=== PATIENT | female | born 1945 | race African-American/Black ===

== ENCOUNTER 2017-12-10 12:09 | Inpatient (IN) | payer MEDICAID, MEDICARE ==
--- NOTE | 2017-12-10 12:46 | EDM.PDOC ---
ED HPI GENERAL MEDICAL PROBLEM - General Stated Complaint: WEAKNESS Time Seen by Provider: 12/10/17 12:15 Source of Information: Reports: Patient History Limitations: Reports: No Limitations - History of Present Illness INITIAL COMMENTS - FREE TEXT/NARRATIVE: Patient comes into the emergency department with family with complaints of weakness bilateral lower extremity. Pt does not speak Romanian-granddaughter is here interpreting. Did try to obtain interpretative services over the phone and via E-emergency however unsuccessful for the patients [place] language and they do not have any registered providers. The grandmother states the patient was ambulating on her own yesterday however today she's been unable to ambulate. When patient tries to stand she begins to shake excessively on her lower extremities and cannot move forward. The grand daughter has noticed she has not b been drinking as much over the past couple days but the pt has not mentioned any reason why. Family/patient denies her falling or being injured in any way. She denies any fever, dizziness, lightheadedness, blurred vision, chest pain, or shortness of breath. She also denies any recent travel or numbness and tingling. Onset: Sudden, Gradual Improves with: Reports: None Worsens with: Reports: None - Related Data Allergies Allergy/AdvReac Type Severity Reaction Status Date / Time lisinopril Allergy Cannot Verified 12/10/17 13:01 Remember Home Meds: Home Meds ARIPiprazole [Abilify] 5 mg PO DAILY 12/10/17 [History] Aspirin [Halfprin] 81 mg PO DAILY 12/10/17 [History] Carvedilol 6.25 mg PO BID 12/10/17 [History] Cholecalciferol (Vitamin D3) [Vitamin D3] 1 tab PO DAILY 12/10/17 [History] Citalopram [Citalopram HBr] 1 tab PO DAILY 12/10/17 [History] Furosemide 20 mg PO DAILY 12/10/17 [History] Losartan Potassium 50 mg PO DAILY 12/10/17 [History] Multivitamin [Multivitamins] 1 caplet PO DAILY 12/10/17 [History] Nintedanib Esylate [Ofev] 150 mg PO BID 12/10/17 [History] Olopatadine HCl [Pazeo] 1 drop EYEBOTH DAILY 12/10/17 [History] Potassium Chloride 1 tab PO DAILY 12/10/17 [History] ED ROS GENERAL - Review of Systems Review Of Systems: See Below Constitutional: Reports: Weakness. Denies: Fever, Chills, Malaise, Fatigue, Night Sweats, Diaphoresis, Decreased Appetite, Weight Loss, Weight Gain HEENT: Reports: No Symptoms Respiratory: Reports: No Symptoms Cardiovascular: Reports: No Symptoms Endocrine: Reports: No Symptoms GI/Abdominal: Reports: No Symptoms : Reports: No Symptoms Musculoskeletal: Reports: No Symptoms Skin: Reports: No Symptoms Neurological: Reports: No Symptoms Psychiatric: Reports: No Symptoms Hematologic/Lymphatic: Reports: No Symptoms Immunologic: Reports: No Symptoms ED EXAM, GENERAL - Physical Exam Exam: See Below Exam Limited By: Language Barrier General Appearance: Alert, No Apparent Distress Eye Exam: Bilateral Eye: PERRL Head: Atraumatic, Normocephalic Neck: Normal Inspection, Supple, Non-Tender, Full Range of Motion Respiratory/Chest: No Respiratory Distress, Lungs Clear, Normal Breath Sounds, No Accessory Muscle Use, Chest Non-Tender Cardiovascular: Normal Peripheral Pulses, Regular Rate, Rhythm, No Edema Back Exam: Normal Inspection, Full Range of Motion Extremities: Normal Inspection, Normal Range of Motion, Non-Tender, No Pedal Edema. No: Increased Warmth, Mottled, Pallor, Redness Neurological: Alert, Abnormal Gait, Other (Pt unable to understand sensory motor exam). No: Normal Gait Psychiatric: Flat Affect (pt shows no sign of emotion or facial flucuation when talking with granddaughter) Skin Exam: Warm, Dry, Normal Color EKG INTERPRETATION EKG Date: 12/10/17 Rhythm: NSR (with PVC) ST-T: Normal QT: Normal Comparison: NA - No Prior EKG Course - Vital Signs Last Recorded V/S: Last Vital Signs Temp 37.0 C 12/10/17 12:15 Pulse 87 12/10/17 12:15 Resp 16 12/10/17 12:15 BP 145/97 H 12/10/17 12:15 Pulse Ox 95 12/10/17 12:15 - Orders/Labs/Meds Orders: Active Orders 24 hr Category Date Time Status Admission Status [Patient Status] [ADT] Routine ADT 12/10/17 14:24 Active EKG Documentation Completion [RC] STAT Care 12/10/17 12:27 Active Chest 1V Frontal [CR] Stat Exams 12/10/17 13:45 Taken Knee 1V or 2V Bi [CR] Stat Exams 12/10/17 12:37 Taken Pelvis 1V or 2V [CR] Stat Exams 12/10/17 12:37 Taken UA W/MICROSCOPIC [URIN] Stat Lab 12/10/17 13:04 Ordered Sodium Chloride 0.9% [Saline Flush] Med 12/10/17 13:10 Active 10 ml FLUSH ASDIRECTED PRN Peripheral IV Insertion Adult [OM.PC] Stat Oth 12/10/17 13:09 Ordered Medication Orders Sodium Chloride (Saline Flush) 10 ml FLUSH ASDIRECTED PRN PRN Reason: Keep Vein Open Labs: Laboratory Tests 12/10/17 12/10/17 12/10/17 Range/Units 12:42 12:42 12:42 WBC 7.5 (4.0-10.0) x10^3/uL RBC 5.84 H (4.00-5.50) x10^6/uL Hgb 12.7 (12.0-16.0) g/dL Hct 36.6 (33.0-47.0) % MCV 62.7 L (78.0-93.0) fL MCH 21.7 L (26.0-32.0) pg MCHC 34.7 (32.0-36.0) g/dL RDW Coeff of Jonh 19.6 H (10.0-15.0) % Plt Count 228 (130-400) x10^3/uL Neut % (Auto) 63.7 (50.0-80.0) % Lymph % (Auto) 25.9 (25.0-50.0) % [place] % (Auto) 8.6 (2.0-11.0) % Eos % (Auto) 1.7 (0.0-4.0) % Baso % (Auto) 0.1 L (0.2-1.2) % Sodium 140 (136-145) mmol/L Potassium 3.7 (3.5-5.1) mmol/L Chloride 104 (98-107) mmol/L Carbon Dioxide 26 (21-32) mmol/L Anion Gap 13.7 (10-20) mmol/L BUN 27 H (7-18) mg/dL Creatinine 1.0 (0.55-1.02) mg/dL Est Cr Clr Drug Dosing 35.45 mL/min Estimated GFR (MDRD) 54 Glucose 111 H (74-106) mg/dL Calcium 9.7 (8.5-10.1) mg/dL Corrected Calcium 10.18 H (8.5-10.1) mg/dL Total Bilirubin 0.7 (0.2-1.0) mg/dL AST 22 (15-37) U/L ALT 16 (14-59) U/L Alkaline Phosphatase 73 (46-116) U/L Creatine Kinase 167 (26-192) U/L NT-Pro-B Natriuret Pep 2905 H (<=125) pg/mL Total Protein 9.0 H (6.4-8.2) g/dL Albumin 3.4 (3.4-5.0) g/dL Globulin 5.6 Albumin/Globulin Ratio 0.61 Urine Color (YELLOW) Urine Appearance (CLEAR) Urine pH (5.0-8.0) Ur Specific [place] Urine Protein (NEGATIVE) mg/dL Urine Glucose (UA) (NEGATIVE) mg/dL Urine Ketones (NEGATIVE) mg/dL Urine Occult Blood (NEGATIVE) Urine Nitrite (NEGATIVE) Urine Bilirubin (NEGATIVE) Urine Urobilinogen (0.2) EU/dL Ur Leukocyte Esterase (NEGATIVE) Urine RBC (NOT SEEN) /HPF Urine WBC (NOT SEEN) /HPF Ur Squamous Epith Cells (NEGATIVE) /HPF Urine Bacteria (NEGATIVE) /HPF Urine Mucus (NEGATIVE) /LPF 12/10/17 Range/Units 13:04 WBC (4.0-10.0) x10^3/uL RBC (4.00-5.50) x10^6/uL Hgb (12.0-16.0) g/dL Hct (33.0-47.0) % MCV (78.0-93.0) fL MCH (26.0-32.0) pg MCHC (32.0-36.0) g/dL RDW Coeff of Jonh (10.0-15.0) % Plt Count (130-400) x10^3/uL Neut % (Auto) (50.0-80.0) % Lymph % (Auto) (25.0-50.0) % [place] % (Auto) (2.0-11.0) % Eos % (Auto) (0.0-4.0) % Baso % (Auto) (0.2-1.2) % Sodium (136-145) mmol/L Potassium (3.5-5.1) mmol/L Chloride (98-107) mmol/L Carbon Dioxide (21-32) mmol/L Anion Gap (10-20) mmol/L BUN (7-18) mg/dL Creatinine (0.55-1.02) mg/dL Est Cr Clr Drug Dosing mL/min Estimated GFR (MDRD) Glucose (74-106) mg/dL Calcium (8.5-10.1) mg/dL Corrected Calcium (8.5-10.1) mg/dL Total Bilirubin (0.2-1.0) mg/dL AST (15-37) U/L ALT (14-59) U/L Alkaline Phosphatase (46-116) U/L Creatine Kinase (26-192) U/L NT-Pro-B Natriuret Pep (<=125) pg/mL Total Protein (6.4-8.2) g/dL Albumin (3.4-5.0) g/dL Globulin Albumin/Globulin Ratio Urine Color Yellow (YELLOW) Urine Appearance Clear (CLEAR) Urine pH 7.0 (5.0-8.0) Ur Specific [place] 1.020 Urine Protein >=300 H (NEGATIVE) mg/dL Urine Glucose (UA) Negative (NEGATIVE) mg/dL Urine Ketones Negative (NEGATIVE) mg/dL Urine Occult Blood Trace-intact H (NEGATIVE) Urine Nitrite Negative (NEGATIVE) Urine Bilirubin Negative (NEGATIVE) Urine Urobilinogen 0.2 (0.2) EU/dL Ur Leukocyte Esterase Trace H (NEGATIVE) Urine RBC 0-5 (NOT SEEN) /HPF Urine WBC 0-5 (NOT SEEN) /HPF Ur Squamous Epith Cells Few H (NEGATIVE) /HPF Urine Bacteria Not seen (NEGATIVE) /HPF Urine Mucus Not seen (NEGATIVE) /LPF Meds: Medications Generic Name Dose Route Start Last Admin Trade Name Freq PRN Reason Stop Dose Admin Sodium Chloride 10 ml 12/10/17 13:10 Saline Flush FLUSH ASDIRECTED PRN Keep Vein Open Discontinued Medications Generic Name Dose Route Start Last Admin Trade Name Freq PRN Reason Stop Dose Admin Sodium Chloride 1,000 mls @ 1,000 mls/hr 12/10/17 13:10 08/18/18 13:19 Normal Saline IV 12/10/17 14:09 1,000 mls/hr ONETIME ONE Administration Departure - Departure Time of Disposition: 14:20 Disposition: Admitted As Inpatient 64 Clinical Impression: CHF (congestive heart failure) Qualifiers: Heart failure type: unspecified Heart failure chronicity: acute Qualified Code( s): I50.9 - Heart failure, unspecified - Discharge Information Referrals: PCP,Not In Area [Primary Care Provider] - - My Orders Last 24 Hours: My Active Orders 12/10/17 12:27 EKG Documentation Completion [RC] STAT 12/10/17 12:37 Knee 1V or 2V Bi [CR] Stat Pelvis 1V or 2V [CR] Stat 12/10/17 13:04 UA W/MICROSCOPIC [URIN] Stat 12/10/17 13:09 Peripheral IV Insertion Adult [OM.PC] Stat 12/10/17 13:10 Sodium Chloride 0.9% [Saline Flush] 10 ml FLUSH ASDIRECTED PRN 12/10/17 13:45 Chest 1V Frontal [CR] Stat 12/10/17 14:24 Admission Status [Patient Status] [ADT] Routine - Assessment/Plan Last 24 Hours: My Active Orders 12/10/17 12:27 EKG Documentation Completion [RC] STAT 12/10/17 12:37 Knee 1V or 2V Bi [CR] Stat Pelvis 1V or 2V [CR] Stat 12/10/17 13:04 UA W/MICROSCOPIC [URIN] Stat 12/10/17 13:09 Peripheral IV Insertion Adult [OM.PC] Stat 12/10/17 13:10 Sodium Chloride 0.9% [Saline Flush] 10 ml FLUSH ASDIRECTED PRN 12/10/17 13:45 Chest 1V Frontal [CR] Stat 12/10/17 14:24 Admission Status [Patient Status] [ADT] Routine Assessment:: 1. weakness 2. unable to ambulate on own Plan: 1. labs completed in ER results discussed with the pt and family 2. xray completed in ER results discussed with the pt and family 3. UA completed in ER 4. IV with fluids for possible dehydration. After labs were returned rate was turned down to 125ml/hr 5. Chest x-ray results discussed with the pt and family 6. Discussed case with hospitalist Dr. Quiroz who has agreed to admit pt under acute care.
[2017-12-10] MEDS ORDERED: Sodium Chloride 0.9% 1,000 ML IV ONE (13:10)
[2017-12-10 13:14] LABS: ANION GAP 13.7 mmol/L (10-20)
[2017-12-10] MEDS ORDERED: Sodium Chloride 0.9% 10 ML Syringe FLUSH PRN (14:51)
[2017-12-10] MEDS: Furosemide 20 MG/2 ML VIAL IV SCH ×2 (17:09→20:11)
[2017-12-10] MEDS: Sodium Chloride 0.9% 10 ML Syringe FLUSH PRN ×2 (17:16→20:11)
[2017-12-10] MEDS: Carvedilol 6.25 MG Tab PO SCH (20:11)
--- NOTE | 2017-12-10 20:30 | PCM.HP ---
H&P History of Present Illness - General Date of Service: 12/10/17 Admit Problem/Dx: Admission Diagnosis/Problem Admission Diagnosis/Problem CHF, Congestive heart failure Source of Information: Patient, Old Records History Limitations: Reports: Language Barrier - History of Present Illness Initial Comments - Free Text/Narative: CC Weakness Pt is 73 year old [place]ian female who has been visiting her granddaughter in for a week. Pt's U[place]ayan is severely limited and hx is obtained through Granddaughter's translation. The patient has been living in [place] with her daughter. She is at baseline able to walk w/o a walker, do ADL's, cook and clean. Granddaughter knows of a hx of depression and some lung problems. Pt was in her usual state of health until she was found this afternoon on her hands and knees, unable to get up because of weakness. Pt herself says the weakness started the night before admision. She denies any pain in legs, back or head, numbness or tingling, just that she is weak. She denies any chess pain or SOB Pt was found unable to transfer w/o 2 assisting in the ER while her strength in her legs was more or less intact. CXR and BNP were consistent with CHF and pt is being admitted for diuresis and observation and treatment of her weakness. Other HPI/Comments: problem2: weakness - Related Data Allergies/Adverse Reactions: Allergies Allergy/AdvReac Type Severity Reaction Status Date / Time lisinopril Allergy Cannot Verified 12/10/17 13:01 Remember Home Medications: Home Meds ARIPiprazole [Abilify] 5 mg PO DAILY 12/10/17 [History] Aspirin [Halfprin] 81 mg PO DAILY 12/10/17 [History] Carvedilol 6.25 mg PO BID 12/10/17 [History] Cholecalciferol (Vitamin D3) [Vitamin D3] 1 tab PO DAILY 12/10/17 [History] Citalopram [Citalopram HBr] 1 tab PO DAILY 12/10/17 [History] Furosemide 20 mg PO DAILY 12/10/17 [History] Losartan Potassium 50 mg PO DAILY 12/10/17 [History] Multivitamin [Multivitamins] 1 caplet PO DAILY 12/10/17 [History] Nintedanib Esylate [Ofev] 150 mg PO BID 12/10/17 [History] Olopatadine HCl [Pazeo] 1 drop EYEBOTH DAILY 12/10/17 [History] Potassium Chloride 1 tab PO DAILY 12/10/17 [History] Past Medical History Cardiovascular History: Reports: Heart Failure (EF 45% with lateral wall hypokinesis, mod MR 06/2017), Hypertension Respiratory History: Reports: Other (See Below) (treated for pulomnary fibrosis at [facility]) Musculoskeletal History: Reports: RA Psychiatric History: Reports: Depression (unable to get hx as to why she is on abilify) Social & Family History - Family History Family Medical History: Unobtainable - Tobacco Use Smoking Status *Q: Never Smoker - Living Situation & Occupation Living situation: Reports: with Family Occupation: Unemployed H&P Review of Systems - Review of Systems: Review Of Systems: See Below General: Reports: No Symptoms Pulmonary: Reports: No Symptoms Cardiovascular: Reports: No Symptoms Gastrointestinal: Reports: No Symptoms Genitourinary: Reports: No Symptoms Musculoskeletal: Reports: No Symptoms Psychiatric: Reports: No Symptoms Neurological: Reports: Gait Disturbance Exam - Exam Exam: See Below - Vital Signs Vital Signs: Last Vital Signs Temp 98.5 F 12/10/17 17:39 Pulse 80 12/10/17 20:11 Resp 20 12/10/17 17:39 BP 151/85 H 12/10/17 20:11 Pulse Ox 99 12/10/17 17:39 Weight: 124 lb 13 oz - Exam General: Alert, Cooperative (limited cooperatio because of language difficulty) HEENT: Conjunctiva Clear, Mucosa Moist & [place] Neck: Supple Lungs: Clear to Auscultation Cardiovascular: Regular Rate GI/Abdominal Exam: Normal Bowel Sounds, Soft, Non-Tender Back Exam: Normal Inspection (no back tenderness) Extremities: Normal Inspection, No Pedal Edema Skin: Warm, Dry, Intact Neurological: Cranial Nerves Intact, Sensation Intact (intact to fine touch, after repated coaching, hip, knee and ankle stength appers liberty in tact but pt unable to stand on her own and walk even 2 steps ) - Patient Data Lab Results Last 24 hrs: Laboratory Results - last 24 hr 12/10/17 12/10/17 12/10/17 Range/Units 12:42 12:42 12:42 WBC 7.5 (4.0-10.0) x10^3/uL RBC 5.84 H (4.00-5.50) x10^6/uL Hgb 12.7 (12.0-16.0) g/dL Hct 36.6 (33.0-47.0) % MCV 62.7 L (78.0-93.0) fL MCH 21.7 L (26.0-32.0) pg MCHC 34.7 (32.0-36.0) g/dL RDW Coeff of Jonh 19.6 H (10.0-15.0) % Plt Count 228 (130-400) x10^3/uL Neut % (Auto) 63.7 (50.0-80.0) % Lymph % (Auto) 25.9 (25.0-50.0) % [place] % (Auto) 8.6 (2.0-11.0) % Eos % (Auto) 1.7 (0.0-4.0) % Baso % (Auto) 0.1 L (0.2-1.2) % Sodium 140 (136-145) mmol/L Potassium 3.7 (3.5-5.1) mmol/L Chloride 104 (98-107) mmol/L Carbon Dioxide 26 (21-32) mmol/L Anion Gap 13.7 (10-20) mmol/L BUN 27 H (7-18) mg/dL Creatinine 1.0 (0.55-1.02) mg/dL Est Cr Clr Drug Dosing 35.45 mL/min Estimated GFR (MDRD) 54 Glucose 111 H (74-106) mg/dL Calcium 9.7 (8.5-10.1) mg/dL Corrected Calcium 10.18 H (8.5-10.1) mg/dL Total Bilirubin 0.7 (0.2-1.0) mg/dL AST 22 (15-37) U/L ALT 16 (14-59) U/L Alkaline Phosphatase 73 (46-116) U/L Creatine Kinase 167 (26-192) U/L Troponin I (<=0.056) ng/mL NT-Pro-B Natriuret Pep 2905 H (<=125) pg/mL Total Protein 9.0 H (6.4-8.2) g/dL Albumin 3.4 (3.4-5.0) g/dL Globulin 5.6 Albumin/Globulin Ratio 0.61 Urine Color (YELLOW) Urine Appearance (CLEAR) Urine pH (5.0-8.0) Ur Specific [place] Urine Protein (NEGATIVE) mg/dL Urine Glucose (UA) (NEGATIVE) mg/dL Urine Ketones (NEGATIVE) mg/dL Urine Occult Blood (NEGATIVE) Urine Nitrite (NEGATIVE) Urine Bilirubin (NEGATIVE) Urine Urobilinogen (0.2) EU/dL Ur Leukocyte Esterase (NEGATIVE) Urine RBC (NOT SEEN) /HPF Urine WBC (NOT SEEN) /HPF Ur Squamous Epith Cells (NEGATIVE) /HPF Urine Bacteria (NEGATIVE) /HPF Urine Mucus (NEGATIVE) /LPF 12/10/17 12/10/17 Range/Units 12:42 13:04 WBC (4.0-10.0) x10^3/uL RBC (4.00-5.50) x10^6/uL Hgb (12.0-16.0) g/dL Hct (33.0-47.0) % MCV (78.0-93.0) fL MCH (26.0-32.0) pg MCHC (32.0-36.0) g/dL RDW Coeff of Jonh (10.0-15.0) % Plt Count (130-400) x10^3/uL Neut % (Auto) (50.0-80.0) % Lymph % (Auto) (25.0-50.0) % [place] % (Auto) (2.0-11.0) % Eos % (Auto) (0.0-4.0) % Baso % (Auto) (0.2-1.2) % Sodium (136-145) mmol/L Potassium (3.5-5.1) mmol/L Chloride (98-107) mmol/L Carbon Dioxide (21-32) mmol/L Anion Gap (10-20) mmol/L BUN (7-18) mg/dL Creatinine (0.55-1.02) mg/dL Est Cr Clr Drug Dosing mL/min Estimated GFR (MDRD) Glucose (74-106) mg/dL Calcium (8.5-10.1) mg/dL Corrected Calcium (8.5-10.1) mg/dL Total Bilirubin (0.2-1.0) mg/dL AST (15-37) U/L ALT (14-59) U/L Alkaline Phosphatase (46-116) U/L Creatine Kinase (26-192) U/L Troponin I < 0.017 (<=0.056) ng/mL NT-Pro-B Natriuret Pep (<=125) pg/mL Total Protein (6.4-8.2) g/dL Albumin (3.4-5.0) g/dL Globulin Albumin/Globulin Ratio Urine Color Yellow (YELLOW) Urine Appearance Clear (CLEAR) Urine pH 7.0 (5.0-8.0) Ur Specific [place] 1.020 Urine Protein >=300 H (NEGATIVE) mg/dL Urine Glucose (UA) Negative (NEGATIVE) mg/dL Urine Ketones Negative (NEGATIVE) mg/dL Urine Occult Blood Trace-intact H (NEGATIVE) Urine Nitrite Negative (NEGATIVE) Urine Bilirubin Negative (NEGATIVE) Urine Urobilinogen 0.2 (0.2) EU/dL Ur Leukocyte Esterase Trace H (NEGATIVE) Urine RBC 0-5 (NOT SEEN) /HPF Urine WBC 0-5 (NOT SEEN) /HPF Ur Squamous Epith Cells Few H (NEGATIVE) /HPF Urine Bacteria Not seen (NEGATIVE) /HPF Urine Mucus Not seen (NEGATIVE) /LPF Result Diagrams: 12/10/17 12:42 12/10/17 12:42 EKG INTERPRETATION Rhythm: NSR [place]: LAD-Left [place] Deviation QRS: RBBB - Problem List (1) CHF (congestive heart failure) SNOMED Code(s): 32856908 ICD Code: I50.9 - HEART FAILURE, UNSPECIFIED Status: Acute Current Visit : Yes Qualifiers: Heart failure type: unspecified Heart failure chronicity: acute on chronic Qualified Code(s): I50.9 - Heart failure, unspecified Problem List Initiated/Reviewed/Updated: Yes Orders Last 24hrs: Active Orders 24 hr Category Date Time Status Patient Status [ADT] Routine ADT 12/10/17 14:51 Active Cardiac Monitoring [RC] 02,06,10,14,18,22 Care 12/10/17 14:52 Active Communication Order [RC] ROUTINE Care 12/10/17 15:05 Active EKG Documentation Completion [RC] STAT Care 12/10/17 12:27 Active Height and Weight [RC] 07 Care 12/10/17 14:51 Active Intake and Output [RC] ,18 Care 12/10/17 14:52 Active Oxygen Therapy [RC] .PRN Care 12/10/17 14:51 Active Up With Assistance [RC] 08,20 Care 12/10/17 14:51 Active VTE/DVT Education [RC] .PRN Care 12/10/17 14:51 Active Vital Signs [RC] 02,06,10,14,18,22 Care 12/10/17 14:51 Active 2 Gram Sodium Diet [DIET] Diet 12/10/17 Dinner Active Chest 1V Frontal [CR] Stat Exams 12/10/17 13:45 Taken Head wo Cont [CT] Routine Exams 12/10/17 15:02 Taken Knee 1V or 2V Bi [CR] Stat Exams 12/10/17 12:37 Taken Pelvis 1V or 2V [CR] Stat Exams 12/10/17 12:37 Taken BASIC METABOLIC PANEL,BMP [CHEM] AM Lab 12/11/17 05:11 Ordered COMPREHENSIVE METABOLIC PN,CMP [CHEM] Routine Lab 12/11/17 05:11 Ordered MAGNESIUM [CHEM] AM Lab 12/11/17 05:11 Ordered TROPONIN I [CHEM] AM Lab 12/11/17 05:11 Ordered UA W/MICROSCOPIC [URIN] Stat Lab 12/10/17 13:04 Ordered ARIPiprazole [Abilify] Med 12/11/17 08:00 Pending 5 mg PO DAILY Aspirin [Halfprin] Med 12/11/17 08:00 Active 81 mg PO DAILY Carvedilol [Coreg] Med 12/10/17 20:00 Active 6.25 mg PO BID Cholecalciferol (Vitamin D3) [Vitamin D3] Med 12/11/17 08:00 Active 1,000 units PO DAILY Citalopram [Celexa] Med 12/11/17 08:00 Active 20 mg PO DAILY Enoxaparin [Lovenox] Med 12/11/17 08:00 Active 40 mg SUBCUT DAILY Furosemide [Lasix] Med 12/10/17 16:30 Active 20 mg IV TID Losartan [Cozaar] Med 12/11/17 08:00 Active 50 mg PO DAILY Multivitamins with Zinc [Stress Formula with Zinc] Med 12/11/17 08:00 Active 1 tab PO DAILY Nintedanib Esylate [Ofev] Med 12/10/17 20:00 Active 150 mg PO BID Olopatadine HCl [Pazeo] Med 12/11/17 08:00 Pending 1 drop EYEBOTH DAILY Potassium Chloride [Klor-Con 10] Med 12/11/17 08:00 Active 10 meq PO DAILY Sodium Chloride 0.9% [Saline Flush] Med 12/10/17 13:10 Active 10 ml FLUSH ASDIRECTED PRN Sodium Chloride 0.9% [Saline Flush] Med 12/10/17 14:51 Active 10 ml FLUSH ASDIRECTED PRN Peripheral IV Insertion Adult [OM.PC] Stat Oth 12/10/17 13:09 Ordered Saline Lock Insert [OM.PC] Routine Oth 12/10/17 14:51 Ordered Resuscitation Status Routine Resus Stat 12/10/17 14:51 Ordered Medication Orders Aspirin (Halfprin) 81 mg PO DAILY [facility] Carvedilol (Coreg) 6.25 mg PO BID [facility] Last Admin: 12/10/17 20:11 Dose: 6.25 mg Cholecalciferol (Vitamin D3) 1,000 units PO DAILY [facility] Citalopram Hydrobromide (Celexa) 20 mg PO DAILY [facility] Enoxaparin Sodium (Lovenox) 40 mg SUBCUT DAILY [facility] Furosemide (Lasix) 20 mg IV TID [facility] Last Admin: 12/10/17 20:11 Dose: 20 mg Admin: 12/10/17 17:09 Dose: 20 mg Losartan Potassium (Cozaar) 50 mg PO DAILY [facility] Non-Formulary Medication (Aripiprazole [Abilify]) 5 mg PO DAILY [facility] Pt Own Med ( Nintedanib Esylate [ Ofev] 150 Mg) 150 mg PO BID [facility] Non-Formulary Medication (Olopatadine Hcl [Pazeo]) 1 drop EYEBOTH DAILY [facility] Potassium Chloride (Klor-Con 10) 10 meq PO DAILY [facility] Sodium Chloride (Saline Flush) 10 ml FLUSH ASDIRECTED PRN PRN Reason: Keep Vein Open Last Admin: 12/10/17 20:11 Dose: 10 ml Admin: 12/10/17 17:16 Dose: 10 ml Sodium Chloride (Saline Flush) 10 ml FLUSH ASDIRECTED PRN PRN Reason: Keep Vein Open Vitamin B Complex/Vit C/Vit E/Zinc (Stress Formula With Zinc) 1 tab PO DAILY [facility] Assessment/Plan Comment:: BNP has never been as high as present level. Will diures with Iv Lasix amd repeat BNP. problem 2: weakness- etiology of this is unclear, maybe related to CHF Plain x rays of hip, knees and pelvis neg for acute injury Cat head shows 12 calcification in an area of encephalomalacia left frontal lobe , mild to moderate generalized atrophy and chronic small vessel disease. If she fails to improve MRI mayb e worthwhile. Also of note is mildly elevated calcium and protein, will repeat n AM and if abnormal will need up for hypercalcemia and Multiple myeloma 3. Microcytosis: this has been seen previously, may be a thalassemia trait, Will hold off on workup since hb is normal, get records from [facility] 4. Depression: continue antidepressant, get records re abilify 5. Pulm Fibrosis: continue present medication, cxr not helpful to determine level of CHF.
[2017-12-10] MEDS: NINTEDANIB ESYLATE 150 MG PO SCH (21:16)
[2017-12-11 07:55] LABS: ANION GAP 13.4 mmol/L (10-20)
[2017-12-11] MEDS: Losartan 50 MG Tab PO SCH (08:10)
[2017-12-11] MEDS: Aspirin 81 MG Tab.EC PO SCH (08:10)
[2017-12-11] MEDS: Multivitamin, Stress Formula with Zinc Tab PO SCH (08:10)
[2017-12-11] MEDS: Cholecalciferol (Vitamin D3) 1,000 Unit Tab PO SCH (08:10)
[2017-12-11] MEDS: Furosemide 20 MG/2 ML VIAL IV SCH ×3 (08:11→21:03)
[2017-12-11] MEDS: Potassium Chloride 10 MEQ Tab.ER PO SCH (08:11)
[2017-12-11] MEDS: Enoxaparin 40 MG/0.4 ML Syringe SUBCUT SCH (08:11)
[2017-12-11] MEDS: Citalopram 20 MG Tab PO SCH (08:11)
[2017-12-11] MEDS: Carvedilol 6.25 MG Tab PO SCH ×2 (08:11→21:03)
[2017-12-11] MEDS: NINTEDANIB ESYLATE 150 MG PO SCH ×2 (08:12→21:03)
--- NOTE | 2017-12-11 10:31 | PCM.PN ---
- General Info Date of Service: 12/11/17 Subjective Update: Pt unable to voice any complaint because of language barrier but answers ok to "How are you today" - Patient Data Vitals - Most Recent: Last Vital Signs Temp 97.0 F 12/11/17 09:38 Pulse 75 12/11/17 09:38 Resp 16 12/11/17 09:38 BP 130/93 H 12/11/17 09:38 Pulse Ox 100 12/11/17 09:38 Weight - Most Recent: 123 lb 6.4 oz I&O - Last 24 Hours: Intake & Output 12/10/17 12/11/17 12/11/17 22:59 06:59 14:59 Intake Total 200 600 Output Total 1150 1800 Balance -950 -1200 Lab Results Last 24 Hours: Laboratory Results - last 24 hr 12/10/17 12/10/17 12/10/17 Range/Units 12:42 12:42 12:42 WBC 7.5 (4.0-10.0) x10^3/uL RBC 5.84 H (4.00-5.50) x10^6/uL Hgb 12.7 (12.0-16.0) g/dL Hct 36.6 (33.0-47.0) % MCV 62.7 L (78.0-93.0) fL MCH 21.7 L (26.0-32.0) pg MCHC 34.7 (32.0-36.0) g/dL RDW Coeff of Jonh 19.6 H (10.0-15.0) % Plt Count 228 (130-400) x10^3/uL Neut % (Auto) 63.7 (50.0-80.0) % Lymph % (Auto) 25.9 (25.0-50.0) % [place] % (Auto) 8.6 (2.0-11.0) % Eos % (Auto) 1.7 (0.0-4.0) % Baso % (Auto) 0.1 L (0.2-1.2) % Sodium 140 (136-145) mmol/L Potassium 3.7 (3.5-5.1) mmol/L Chloride 104 (98-107) mmol/L Carbon Dioxide 26 (21-32) mmol/L Anion Gap 13.7 (10-20) mmol/L BUN 27 H (7-18) mg/dL Creatinine 1.0 (0.55-1.02) mg/dL Est Cr Clr Drug Dosing 35.45 mL/min Estimated GFR (MDRD) 54 Glucose 111 H (74-106) mg/dL Calcium 9.7 (8.5-10.1) mg/dL Corrected Calcium 10.18 H (8.5-10.1) mg/dL Magnesium (1.8-2.4) mg/dL Total Bilirubin 0.7 (0.2-1.0) mg/dL AST 22 (15-37) U/L ALT 16 (14-59) U/L Alkaline Phosphatase 73 (46-116) U/L Creatine Kinase 167 (26-192) U/L Troponin I (<=0.056) ng/mL NT-Pro-B Natriuret Pep 2905 H (<=125) pg/mL Total Protein 9.0 H (6.4-8.2) g/dL Albumin 3.4 (3.4-5.0) g/dL Globulin 5.6 Albumin/Globulin Ratio 0.61 Urine Color (YELLOW) Urine Appearance (CLEAR) Urine pH (5.0-8.0) Ur Specific Mackey Urine Protein (NEGATIVE) mg/dL Urine Glucose (UA) (NEGATIVE) mg/dL Urine Ketones (NEGATIVE) mg/dL Urine Occult Blood (NEGATIVE) Urine Nitrite (NEGATIVE) Urine Bilirubin (NEGATIVE) Urine Urobilinogen (0.2) EU/dL Ur Leukocyte Esterase (NEGATIVE) Urine RBC (NOT SEEN) /HPF Urine WBC (NOT SEEN) /HPF Ur Squamous Epith Cells (NEGATIVE) /HPF Urine Bacteria (NEGATIVE) /HPF Urine Mucus (NEGATIVE) /LPF 12/10/17 12/10/17 12/11/17 Range/Units 12:42 13:04 07:13 WBC (4.0-10.0) x10^3/uL RBC (4.00-5.50) x10^6/uL Hgb (12.0-16.0) g/dL Hct (33.0-47.0) % MCV (78.0-93.0) fL MCH (26.0-32.0) pg MCHC (32.0-36.0) g/dL RDW Coeff of Jonh (10.0-15.0) % Plt Count (130-400) x10^3/uL Neut % (Auto) (50.0-80.0) % Lymph % (Auto) (25.0-50.0) % [place] % (Auto) (2.0-11.0) % Eos % (Auto) (0.0-4.0) % Baso % (Auto) (0.2-1.2) % Sodium 142 (136-145) mmol/L Potassium 3.4 L (3.5-5.1) mmol/L Chloride 105 (98-107) mmol/L Carbon Dioxide 27 (21-32) mmol/L Anion Gap 13.4 (10-20) mmol/L BUN 29 H (7-18) mg/dL Creatinine 1.1 H (0.55-1.02) mg/dL Est Cr Clr Drug Dosing 32.23 mL/min Estimated GFR (MDRD) 59 Glucose 140 H (74-106) mg/dL Calcium 8.9 (8.5-10.1) mg/dL Corrected Calcium 9.54 (8.5-10.1) mg/dL Magnesium 1.9 (1.8-2.4) mg/dL Total Bilirubin 0.7 (0.2-1.0) mg/dL AST 35 (15-37) U/L ALT 20 (14-59) U/L Alkaline Phosphatase 68 (46-116) U/L Creatine Kinase (26-192) U/L Troponin I < 0.017 0.028 (<=0.056) ng/mL NT-Pro-B Natriuret Pep (<=125) pg/mL Total Protein 8.5 H (6.4-8.2) g/dL Albumin 3.2 L (3.4-5.0) g/dL Globulin 5.3 Albumin/Globulin Ratio 0.60 Urine Color Yellow (YELLOW) Urine Appearance Clear (CLEAR) Urine pH 7.0 (5.0-8.0) Ur Specific Mackey 1.020 Urine Protein >=300 H (NEGATIVE) mg/dL Urine Glucose (UA) Negative (NEGATIVE) mg/dL Urine Ketones Negative (NEGATIVE) mg/dL Urine Occult Blood Trace-intact H (NEGATIVE) Urine Nitrite Negative (NEGATIVE) Urine Bilirubin Negative (NEGATIVE) Urine Urobilinogen 0.2 (0.2) EU/dL Ur Leukocyte Esterase Trace H (NEGATIVE) Urine RBC 0-5 (NOT SEEN) /HPF Urine WBC 0-5 (NOT SEEN) /HPF Ur Squamous Epith Cells Few H (NEGATIVE) /HPF Urine Bacteria Not seen (NEGATIVE) /HPF Urine Mucus Not seen (NEGATIVE) /LPF 12/11/17 Range/Units 07:13 WBC (4.0-10.0) x10^3/uL RBC (4.00-5.50) x10^6/uL Hgb (12.0-16.0) g/dL Hct (33.0-47.0) % MCV (78.0-93.0) fL MCH (26.0-32.0) pg MCHC (32.0-36.0) g/dL RDW Coeff of Jonh (10.0-15.0) % Plt Count (130-400) x10^3/uL Neut % (Auto) (50.0-80.0) % Lymph % (Auto) (25.0-50.0) % [place] % (Auto) (2.0-11.0) % Eos % (Auto) (0.0-4.0) % Baso % (Auto) (0.2-1.2) % Sodium (136-145) mmol/L Potassium (3.5-5.1) mmol/L Chloride (98-107) mmol/L Carbon Dioxide (21-32) mmol/L Anion Gap (10-20) mmol/L BUN (7-18) mg/dL Creatinine (0.55-1.02) mg/dL Est Cr Clr Drug Dosing mL/min Estimated GFR (MDRD) Glucose (74-106) mg/dL Calcium (8.5-10.1) mg/dL Corrected Calcium (8.5-10.1) mg/dL Magnesium (1.8-2.4) mg/dL Total Bilirubin (0.2-1.0) mg/dL AST (15-37) U/L ALT (14-59) U/L Alkaline Phosphatase (46-116) U/L Creatine Kinase (26-192) U/L Troponin I (<=0.056) ng/mL NT-Pro-B Natriuret Pep 2199 H (<=125) pg/mL Total Protein (6.4-8.2) g/dL Albumin (3.4-5.0) g/dL Globulin Albumin/Globulin Ratio Urine Color (YELLOW) Urine Appearance (CLEAR) Urine pH (5.0-8.0) Ur Specific [place] Urine Protein (NEGATIVE) mg/dL Urine Glucose (UA) (NEGATIVE) mg/dL Urine Ketones (NEGATIVE) mg/dL Urine Occult Blood (NEGATIVE) Urine Nitrite (NEGATIVE) Urine Bilirubin (NEGATIVE) Urine Urobilinogen (0.2) EU/dL Ur Leukocyte Esterase (NEGATIVE) Urine RBC (NOT SEEN) /HPF Urine WBC (NOT SEEN) /HPF Ur Squamous Epith Cells (NEGATIVE) /HPF Urine Bacteria (NEGATIVE) /HPF Urine Mucus (NEGATIVE) /LPF Med Orders - Current: Current Medications Aspirin (Halfprin) 81 mg PO DAILY [facility] Last Admin: 12/11/17 08:10 Dose: 81 mg Carvedilol (Coreg) 6.25 mg PO BID [facility] Last Admin: 12/11/17 08:11 Dose: 6.25 mg Cholecalciferol (Vitamin D3) 1,000 units PO DAILY [facility] Last Admin: 12/11/17 08:10 Dose: 1,000 units Citalopram Hydrobromide (Celexa) 20 mg PO DAILY [facility] Last Admin: 12/11/17 08:11 Dose: 20 mg Enoxaparin Sodium (Lovenox) 40 mg SUBCUT DAILY [facility] Last Admin: 12/11/17 08:11 Dose: 40 mg Furosemide (Lasix) 20 mg IV TID [facility] Last Admin: 12/11/17 08:11 Dose: 20 mg Losartan Potassium (Cozaar) 50 mg PO DAILY [facility] Last Admin: 12/11/17 08:10 Dose: 50 mg Non-Formulary Medication (Aripiprazole [Abilify]) 5 mg PO DAILY [facility] Pt Own Med ( Nintedanib Esylate [ Ofev] 150 Mg) 150 mg PO BID [facility] Last Admin: 12/11/17 08:12 Dose: 150 mg Non-Formulary Medication (Olopatadine Hcl [Pazeo]) 1 drop EYEBOTH DAILY [facility] Potassium Chloride (Klor-Con 10) 10 meq PO DAILY [facility] Last Admin: 12/11/17 08:11 Dose: 10 meq Sodium Chloride (Saline Flush) 10 ml FLUSH ASDIRECTED PRN PRN Reason: Keep Vein Open Last Admin: 12/10/17 20:11 Dose: 10 ml Sodium Chloride (Saline Flush) 10 ml FLUSH ASDIRECTED PRN PRN Reason: Keep Vein Open Vitamin B Complex/Vit C/Vit E/Zinc (Stress Formula With Zinc) 1 tab PO DAILY [facility] Last Admin: 12/11/17 08:10 Dose: 1 tab Discontinued Medications Sodium Chloride (Normal Saline) 1,000 mls @ 1,000 mls/hr IV ONETIME ONE Stop: 12/10/17 14:09 Last Admin: 12/10/17 13:19 Dose: 1,000 mls/hr - Exam General: Alert Lungs: Rales (1/3 renate) Cardiovascular: Regular Rate, Murmurs (2/6 mitral) Extremities: Normal Inspection Neurological: Other (moving legs outof bed , able to sit up on side of bed w/o assistance.) Psy/Mental Status: Alert (able to stand independently but walks easily with walker) - Problem List & Annotations (1) CHF (congestive heart failure) SNOMED Code(s): 47020511 Code(s): I50.9 - HEART FAILURE, UNSPECIFIED Status: Acute Current Visit: Yes Qualifiers: Heart failure type: unspecified Heart failure chronicity: acute on chronic Qualified Code(s): I50.9 - Heart failure, unspecified Annotation/Comment:: bnp improved, weight down 1 lb, continue IV Lasix (2) Weakness SNOMED Code(s): 11657364 Code(s): R53.1 - WEAKNESS Status: Acute Current Visit: Yes Annotation/ Comment:: Pt's appears stronger today but clearly unable to wlak w/o walker. Her [place] chart makes nomention of walker use; will need to navarro with daughter about pt's functioning status, also get [facility] notes.Pt uses walker easily, suggesting she has used one int he past. Will place Pt consult. (3) Hypercalcemia SNOMED Code(s): 28929221 Code(s): E83.52 - HYPERCALCEMIA Status: Acute Current Visit: Yes Annotation/Comment:: resolved (4) RBC microcytosis Status: Acute Current Visit: Yes Annotation/Comment:: was seen in [place] labs over the last year, await [facility] labs - My Orders Last 24 Hours: My Active Orders 12/10/17 14:51 Patient Status [ADT] Routine Height and Weight [RC] 07 Oxygen Therapy [RC] .PRN Up With Assistance [RC] 08,20 VTE/DVT Education [RC] .PRN Vital Signs [RC] 02,06,10,14,18,22 Sodium Chloride 0.9% [Saline Flush] 10 ml FLUSH ASDIRECTED PRN Saline Lock Insert [OM.PC] Routine Resuscitation Status Routine 12/10/17 14:52 Intake and Output [RC] 12/10/17 15:02 Head wo Cont [CT] Routine 12/10/17 15:05 Communication Order [RC] ROUTINE 12/10/17 16:30 Furosemide [Lasix] 20 mg IV TID 12/10/17 20:00 Carvedilol [Coreg] 6.25 mg PO BID Nintedanib Esylate [Ofev] 150 mg PO BID 12/10/17 Dinner 2 Gram Sodium Diet [DIET] 12/11/17 08:00 ARIPiprazole [Abilify] 5 mg PO DAILY Aspirin [Halfprin] 81 mg PO DAILY Cholecalciferol (Vitamin D3) [Vitamin D3] 1,000 units PO DAILY Citalopram [Celexa] 20 mg PO DAILY Enoxaparin [Lovenox] 40 mg SUBCUT DAILY Losartan [Cozaar] 50 mg PO DAILY Multivitamins with Zinc [Stress Formula with Zinc] 1 tab PO DAILY Olopatadine HCl [Pazeo] 1 drop EYEBOTH DAILY Potassium Chloride [Klor-Con 10] 10 meq PO DAILY - Plan Plan:: BNP has never been as high as present level. Will diures with Iv Lasix amd repeat BNP. problem 2: weakness- etiology of this is unclear, maybe related to CHF Plain x rays of hip, knees and pelvis neg for acute injury Cat head shows 12 calcification in an area of encephalomalacia left frontal lobe , mild to moderate generalized atrophy and chronic small vessel disease. If she fails to improve MRI mayb e worthwhile. Also of note is mildly elevated calcium and protein, will repeat n AM and if abnormal will need up for hypercalcemia and Multiple myeloma 3. Microcytosis: this has been seen previously, may be a thalassemia trait, Will hold off on workup since hb is normal, get records from [facility] 4. Depression: continue antidepressant, get records re abilify 5. Pulm Fibrosis: continue present medication, cxr not helpful to determine level of CHF.
[2017-12-11] MEDS: Sodium Chloride 0.9% 10 ML Syringe FLUSH PRN (21:06)
[2017-12-12] MEDS: Citalopram 20 MG Tab PO SCH (07:59)
[2017-12-12] MEDS: Multivitamin, Stress Formula with Zinc Tab PO SCH (07:59)
[2017-12-12] MEDS: Cholecalciferol (Vitamin D3) 1,000 Unit Tab PO SCH (07:59)
[2017-12-12] MEDS: Enoxaparin 40 MG/0.4 ML Syringe SUBCUT SCH (07:59)
[2017-12-12] MEDS: Furosemide 20 MG/2 ML VIAL IV SCH ×2 (07:59→11:48)
[2017-12-12] MEDS: Aspirin 81 MG Tab.EC PO SCH (07:59)
[2017-12-12] MEDS: Potassium Chloride 10 MEQ Tab.ER PO SCH ×3 (07:59→12:28)
[2017-12-12] MEDS: Carvedilol 6.25 MG Tab PO SCH (07:59)
[2017-12-12] MEDS: Losartan 50 MG Tab PO SCH (07:59)
[2017-12-12] MEDS: NINTEDANIB ESYLATE 150 MG PO SCH (08:00)
[2017-12-12] MEDS: Sodium Chloride 0.9% 10 ML Syringe FLUSH PRN (08:00)
[2017-12-12 09:03] LABS: ANION GAP 13.2 mmol/L (10-20)
[2017-12-12] MEDS: ARIPIPRAZOLE 5 MG PO SCH ×2 (09:27→11:24)
[2017-12-12] MEDS: OLOPATADINE HCL EYE EYEBOTH SCH ×2 (09:30→09:38)
[2017-12-12] MEDS ORDERED: Potassium Chloride 10 MEQ Tab.ER PO SCH (12:11)
--- NOTE | 2017-12-13 05:44 | DISCH ---
PRIMARY DISCHARGE DIAGNOSES: 1. [id number] systolic heart failure exacerbation with known ejection fraction of 40% from 06/2017. Undergoing further outpatient cardiology workup, but has not had her stress test yet. 2. Moderate mitral regurgitation. 3. Underlying pulmonary fibrosis, on treatment since September. 4. Positive rheumatoid factor, but no diagnosis of rheumatoid arthritis. 5. Bilateral knee pain due to osteoarthritis, notedly significant on x-ray, especially the left knee, but right knee seems to be worse. 6. Bilateral leg weakness, probably due to heart failure exacerbation. 7. Essential hypertension, on Cozaar. 8. History of depression, on Abilify and Celexa. She normally follows with the [facility]. 9. Reported findings on CT scan for encephalomalacia of the left frontal lobe with no history of clinical stroke. Discussed with family. 10.Microcytosis, chronic, without anemia, possibly underlying thalassemia. 11.Hypokalemia due to diuresis, improving. Our plan is to increase potassium on discharge. 12.Mild hypercalcemia on admission, corrected. REASON FOR ADMISSION: On the date of admission, this 72-year-old female was found to be down at home, not necessarily fallen and lying there, but just unable to get back up. She has arthritis in her knees. She was brought in. She was found to have some rales. She has underlying pulmonary fibrosis. ProBNP was elevated up to 2900. Therefore, she was diuresed with IV Lasix 20 mg 3 times a day and did lose 1 pound the first night. She had high blood pressure of 180/109 on admission, but this improved with diuresis. She had no chest pain. She had no shortness of breath. By the time of discharge, she was not using any oxygen. She had an EKG that did not show any acute changes. She had a discharge weight of 55.79 kg and admitting weight was 56.6. Family was present and served as the fisheries inspector as her dialect was too rare to have somebody through the language line. Her biggest concern was that her legs still felt heavy. The right knee seemed to be worse than the left, but that was felt to be more arthritis-related than any weakness from a possible stroke. Potassium was down to 3.2 from diuresis. I had increased her potassium from 10 mEq daily up to 20 mEq 3 times a day and had discontinued her noon dose of Lasix at the time of discharge. She was up and ambulating well with the use of a walker, which apparently she has never used before. Family was hopeful that she would be getting some home health with home PT services and this was also arranged. PHYSICAL EXAMINATION: VITAL SIGNS: Otherwise, at the time of discharge, she had stable vital signs, which include a weight of 55.7, temperature 98.7, pulse 71, blood pressure 120/66, respiratory rate was 20, and O2 of 96% on room air. GENERAL: She is in no acute distress. HEART: Regular rate and rhythm. LUNGS: Lung sounds are decreased with some rales, possibly due more to pulmonary fibrosis. No wheezing. ABDOMEN: Nondistended, nontender. EXTREMITIES: Warm and dry, no edema. MENTAL STATUS: She is alert. She is polite and cooperative. Otherwise, she had not noted any weight gain or leg swelling prior to this admission. DISCHARGE PLANS AND INSTRUCTIONS: She will follow up with Dr. Palacio in the clinic or the [facility] in the next 7 to 14 days. She will have a BMP and mag drawn by Home Health next week. We will increase her Lasix to 20 mg twice daily. We will increase her potassium to 20 mEq also twice daily. She will follow up with lung specialist and network specialist when she returns to [place]. I will notify them that she is going to be in [place] for the next month. They were actually planning a stress test for her. She had troponin repeated x2, both were normal. She had no chest pain during her stay. Other than increasing the Lasix and potassium, no other medication adjustments were made. She was also on Lovenox for DVT prophylaxis. Home health addendum occurred on 12/12/2017, [id number] with myself. I will periodically monitor this plan of care. Reason for home health is for teaching and assessments of a new diagnosis of heart failure exacerbation, for medication monitoring along with vitals and to assist with drawing labs in a patient who is homebound due to impaired mobility due to severe arthritis in her knees. Physical Therapy will also work with the patient to improve her mobility. She is unable to leave her home without the assist of another person. Absences from home are infrequent and require taxing effort. Greater than 30 minutes spent on the discharge process. Her granddaughter did serve as the fisheries inspector for the reason that her dialect was too rare to be found on the language line. MKA: 12/12/2017 12:14:59 MODL: 12/13/2017 05:37:11 /[id number]
== END 2017-12-12 14:50 | disposition home health service (06) | DRG 293 ==
LOC: VM.ED 12:09 → VM.MS 14:24
PROVIDERS: ADMIT Internal Medicine; ATTEND Internal Medicine
DX: I50.9 Heart failure, unspecified (principal); I11.0 Hypertensive heart disease with heart failure; I50.23 Acute on chronic systolic (congestive) heart failure; F32.9 Major depressive disorder, single episode, unspecified; J84.10 Pulmonary fibrosis, unspecified; R76.8 Other specified abnormal immunological findings in serum; E87.6 Hypokalemia; I34.0 Nonrheumatic mitral (valve) insufficiency; M17.0 Bilateral primary osteoarthritis of knee; E83.52 Hypercalcemia; G93.89 Other specified disorders of brain; D56.3 Thalassemia minor; R26.9 Unspecified abnormalities of gait and mobility; I45.10 Unspecified right bundle-branch block; Z79.82 Long term (current) use of aspirin; Z79.899 Other long term (current) drug therapy; Z60.3 Acculturation difficulty; Z88.8 Allergy status to other drugs, medicaments and biological substances
CPT/HCPCS: 36415; 70450; 71045; 72170; 73560-50; 80048; 80053; 81001; 82550; 83735; 83880; 84484; 85025; 93005; 96360; 97116-GP; 97161-GP; 99285; A9270-GY; J1650; J1940; J7030; J7050